=== PATIENT | female | born 1945 | race Caucasian/White ===

== ENCOUNTER 2017-02-23 10:52 | Outpatient (CLI) | payer OTHER ==
--- NOTE | 2017-02-23 13:16 | DIAGNOSTIC IMAGING REPORT ---
PROCEDURE: DEXA BONE DENSITY STUDY CLINICAL INDICATION: MENOPAUSAL COMPARISON: DEXA scan 03/03/2015. FINDINGS: LUMBAR SPINE: Bone mineral density 0.918, T-score -1.2, osteopenia (previously bone mineral density 0.907, T-score -1.3, 1.1% bone mineral density increase). LEFT HIP: Bone mineral density 0.910, T-score -0.3, normal (previously bone mineral density 0.883, T-score -0.5, 3% bone mineral density increase). LEFT FEMORAL NECK: Bone mineral density 0.716, T-score -1.2, osteopenia (previously bone mineral density 0.718, T-score -1.2, 0.2% bone mineral density loss). (T score greater or equal to -1.0 to: NORMAL) (T score from -1.1 to -2.4: OSTEOPENIA) (T score ess than or equal to -2.5: OSTEOPOROSIS) IMPRESSION: 1. Lumbar spine osteopenia with 1.1% bone mineral density increase 2. Left hip osteopenia with 0.2% femoral neck bone mineral density loss 3. 10-year fracture risk: Major osteoporotic fracture 9.1%, hip fracture 1.3%.
== END 2017-02-23 23:00 | disposition home or self-care (01) ==
LOC: XR SRH 10:52
DX: M85.88 Other specified disorders of bone density and structure, other site (principal)

== ENCOUNTER 2017-03-15 10:24 | Outpatient (CLI) | payer OTHER ==
--- NOTE | 2017-03-15 10:55 | DIAGNOSTIC IMAGING REPORT ---
PROCEDURE: MG BILATERAL SCREENING W/CAD INDICATION: SCREENING TECHNIQUE: Bilateral CC and MLO digital views. COMPARISON: Compared to 03/14/2016, 03/03/2015, and 02/26/2014. FINDINGS: Computer-aided detection applied. Moderately dense. Biopsy marker in the upper inner left breast. No change. IMPRESSION: 1. Negative mammogram RESULT CODE: 1- Negative. A. A negative report should not delay biopsy if a dominant or clinically suspicious mass is present. 10-15% of cancers are not identified by x-ray. B. A negative report may reinforce clinical impression. C. Adenosis and dense breasts may obscure an underlying neoplasm. D. False positive reports average 6-10%. E.. A yearly screening mammogram is recommended. A reminder letter will be scheduled.
== END 2017-03-15 23:00 ==
LOC: MAM SRH 10:24
DX: Z12.31 Encounter for screening mammogram for malignant neoplasm of breast (principal)